=== PATIENT | female | born 1935 | race Caucasian/White ===

== ENCOUNTER 2023-03-25 19:12 | Observation (INO) | payer MEDICARE, OTHER ==
[2023-03-25 20:05] LABS: BASOPHILS ABSOLUTE AUTO 0.01 K/mm3 (0.01-0.08); BASOPHILS PERCENT AUTO 0.1 % (0.1-1.2); EOSINOPHILS ABSOLUTE AUTO 0.09 K/mm3 (0.04-0.36); HEMATOCRIT 34.1 % (34.1-44.9); IMMATURE GRAN ABSOLUTE AUTO 0.01 K/mm3 (0.00-0.10); IMMATURE GRAN PERCENT AUTO 0.1 % (<=1.0); LYMPHOCYTES ABSOLUTE AUTO 2.07 K/mm3 (1.18-3.74); MEAN CORPUSCULAR HEMOGLOBIN 31.9 pg (25.6-32.2); MEAN CORPUSCULAR HGB CONC 32.3 g/dl (32.2-35.5); MEAN CORPUSCULAR VOLUME 98.8 fl (79.4-94.8); MEAN PLATELET VOLUME 8.6 fl (9.4-12.3); MONOCYTES ABSOLUTE AUTO 0.74 K/mm3 (0.24-0.36); MONOCYTES PERCENT AUTO 8.2 % (4.7-12.5); NEUTROPHILS ABSOLUTE AUTO 6.09 K/mm3 (1.56-6.13); NEUTROPHILS PERCENT AUTO 67.6 % (34.0-71.1); PLATELET COUNT,PLT 390 K/mm3 (182-369); RED BLOOD CELL COUNT 3.45 M/mm3 (3.98-5.22); WHITE BLOOD CELL COUNT,WBC 9.01 K/mm3 (3.98-10.04)
[2023-03-25 20:28] LABS: A/G RATIO 0.5 (1-2); ALBUMIN 2.1 g/dl (3.4-5.0); ANION GAP 10.4 (5-15); BILIRUBIN TOTAL 0.2 mg/dL (0.2-1.0); CALCIUM 7.9 mg/dL (8.5-10.1); CREATININE 0.6 mg/dL (0.55-1.02); EST CRCL DRUG DOSING (CG) 49.19 mL/min; PROTEIN TOTAL,TP 6.6 g/dl (6.4-8.2)
[2023-03-25 20:50] LABS: POTASSIUM,K 2.4 mEq/L (3.5-5.1)
[2023-03-25] MEDS ORDERED: Potassium Chloride 20 MEQ Tab.ER PO ONE (20:53)
[2023-03-25] MEDS ORDERED: Potassium Chloride 10 MEQ in Premix Bag 1 BAG IV ONE (20:53)
[2023-03-25] MEDS: Potassium Chloride 10 MEQ in Premix Bag 1 BAG IV SCH (23:27)
[2023-03-25] MEDS ORDERED: Sodium Chloride 0.9% 250 ML IV SCH (23:30)
[2023-03-25] MEDS ORDERED: Sodium Chloride 0.9% 250 ML ONE (23:30)
[2023-03-26] MEDS: Potassium Chloride 10 MEQ in Premix Bag 1 BAG IV SCH (00:48)
[2023-03-26 05:22] LABS: BASOPHILS ABSOLUTE AUTO 0.01 K/mm3 (0.01-0.08); BASOPHILS PERCENT AUTO 0.1 % (0.1-1.2); EOSINOPHILS ABSOLUTE AUTO 0.14 K/mm3 (0.04-0.36); EOSINOPHILS PERCENT AUTO 1.5 (0.7-5.8); HEMATOCRIT 32.2 % (34.1-44.9); HEMOGLOBIN 10.1 gm/dl (11.2-15.7); IMMATURE GRAN ABSOLUTE AUTO 0.03 K/mm3 (0.00-0.10); IMMATURE GRAN PERCENT AUTO 0.3 % (<=1.0); LYMPHOCYTES ABSOLUTE AUTO 1.73 K/mm3 (1.18-3.74); LYMPHOCYTES PERCENT AUTO 18.4 % (19.3-51.7); MEAN CORPUSCULAR HEMOGLOBIN 31.4 pg (25.6-32.2); MEAN CORPUSCULAR HGB CONC 31.4 g/dl (32.2-35.5); MEAN PLATELET VOLUME 8.9 fl (9.4-12.3); MONOCYTES ABSOLUTE AUTO 0.69 K/mm3 (0.24-0.36); MONOCYTES PERCENT AUTO 7.3 % (4.7-12.5); NEUTROPHILS ABSOLUTE AUTO 6.81 K/mm3 (1.56-6.13); NEUTROPHILS PERCENT AUTO 72.4 % (34.0-71.1); PLATELET COUNT,PLT 357 K/mm3 (182-369); RED BLOOD CELL COUNT 3.22 M/mm3 (3.98-5.22); WHITE BLOOD CELL COUNT,WBC 9.41 K/mm3 (3.98-10.04)
[2023-03-26 05:38] LABS: ANION GAP 8.5 (5-15); CALCIUM 7.9 mg/dL (8.5-10.1); CREATININE 0.3 mg/dL (0.55-1.02); EST CRCL DRUG DOSING (CG) 94.9 mL/min; POTASSIUM,K 3.5 mEq/L (3.5-5.1)
== END 2023-03-26 13:40 | disposition home or self-care (01) ==
LOC: JD.ED 19:12 → JD.MS 21:56
PROVIDERS: ADMIT Internal Medicine; ATTEND Internal Medicine
DX: E87.6 Hypokalemia (principal); F03.90 Unspecified dementia, unspecified severity, without behavioral disturbance, psychotic disturbance, mood disturbance, and anxiety; Z79.899 Other long term (current) drug therapy; Z79.890 Hormone replacement therapy; Z87.891 Personal history of nicotine dependence
CPT/HCPCS: 36415; 80048; 80053; 85025; 96365; 96366; 99285; A9270; G0378; J3480; J7050

== ENCOUNTER 2024-10-31 11:01 | Inpatient (IN) | payer MEDICARE, OTHER ==
[2024-10-31 11:28] LABS: BICARBONATE,ARTERIAL 24.3 meq/L (22.0-26.0)
[2024-10-31 11:29] LABS: BASE EXCESS ARTERIAL -0.9 (-2-2.0); CARBOXYHEMOGLOBIN 1.6 %THgb (0.00-1.50); OXYHEMOGLOBIN 97.4; TOTAL HEMOGLOBIN 18.9 g/L (12.0-18.0)
[2024-10-31] MEDS: Lactated Ringers 1,000 ML IV ONE ×2 (11:30→14:53)
[2024-10-31] MEDS ORDERED: Sodium Chloride 0.9% 10 ML Syringe FLUSH PRN (11:32)
[2024-10-31 13:01] LABS: A/G RATIO 0.7 (1-2); ALANINE AMINOTRANSFERASE,ALT 37 U/L (14-59); ALBUMIN 2.7 g/dl (3.4-5.0); ALKALINE PHOSPHATASE 63 U/L (46-116); ANION GAP 15.9 (5-15); ASPARTATE AMNIOTRANSFERASE,AST 39 U/L (15-37); BUN/CREATININE RATIO 58.1 (14-18); CARBON DIOXIDE,CO2 28 mEq/L (21-32); CHLORIDE,CL 114 mEq/L (98-107); ESTIMATED GFR 31 mL/min (>60); GLUCOSE RANDOM 133 mg/dL (70-99); LIPASE 20 U/L (16-77); MAGNESIUM 2.4 mg/dL (1.8-2.4); POTASSIUM,K 3.9 mEq/L (3.5-5.1); PROTEIN TOTAL,TP 6.8 g/dl (6.4-8.2); TSH 2.807 uIU/mL (0.358-3.74)
[2024-10-31 13:12] LABS: ACETAMINOPHEN 0 ug/mL (10-30); BLOOD UREA NITROGEN,BUN 93 mg/dL (7-18); CALCIUM 10.7 mg/dL (8.5-10.1); CREATININE 1.6 mg/dL (0.55-1.02); SODIUM,NA 154 mEq/L (136-145); TROPONIN I HIGH SENSITIVITY 127 pg/mL (<=51)
[2024-10-31 13:13] LABS: LACTIC ACID 3.1 mmol/L (0.4-2.0)
[2024-10-31] MEDS: Piperacillin/Tazobactam 4.5 GM in Sodium Chloride 0.9% 100 ML IV ONE (13:45)
[2024-10-31] MEDS: Sodium Chloride 0.9% 1,000 ML IV ONE (14:00)
[2024-10-31 14:30] LABS: APPEARANCE,URINE CLEAR (Clear); BILIRUBIN,URINE 2+ (Negative); COLOR,URINE DARK YELLOW (Yellow); GLUCOSE,URINE NEGATIVE (Negative); KETONES,URINE 1+ (Negative); LEUKOCYTE ESTERASE,URINE NEGATIVE (Negative); NITRITE,URINE NEGATIVE (Negative); OCCULT BLOOD,URINE 3+ (Negative); PROTEIN,URINE 2+ (Negative)
[2024-10-31 14:36] LABS: BARBITURATE SCREEN,URINE NEGATIVE ({null, CUTOFF=200}); BENZODIAZEPINES SCREEN,URINE NEGATIVE ({null, CUTOFF=150}); BUPRENORPHINE SCREEN,URINE NEGATIVE ({null, CUTOFF=10}); METHADONE SCREEN, URINE NEGATIVE ({null, CUTOFF=200}); METHAMPHETAMINES SCREEN, URINE NEGATIVE ({null, CUTOFF=500}); OXYCODONE SCREEN,URINE NEGATIVE ({null, CUT0FF=100}); THC SCREEN,URINE 20 NG/ML PRESUMPTIVE POSITIVE ({null, CUTOFF=50})
[2024-10-31 14:49] LABS: AMPHETAMINES SCREEN, URINE NEGATIVE ({null, CUTOFF=500})
[2024-10-31] MEDS: Aspirin 300 MG Supp RECTAL ONE (14:50)
[2024-10-31] MEDS: VANCOmycin 0.75 GM in Sodium Chloride 0.9% 250 ML IV ONE (14:50)
[2024-10-31 15:03] LABS: BACTERIA,URINE FEW /hpf (FEW); EPITHELIAL CELLS,URINE 0-5 /hpf (0-5); MUCUS,URINE FEW /hpf (FEW); RBC,URINE 20-30 /hpf (0-5); WBC,URINE 0-5 /hpf (0-5)
[2024-10-31 15:04] LABS: HYALINE CASTS,URINE 0-5 /lpf (0-5)
[2024-10-31 15:05] LABS: COARSE GRANULAR CASTS,URINE 0-5 /hpf (0-5)
[2024-10-31] MEDS: Sodium Chloride 0.9% 10 ML Syringe FLUSH ONE (15:56)
[2024-10-31] MEDS: Iopamidol 755 Mg/ML 100 ML Bottle IVPUSH ONE (15:56)
[2024-10-31] MEDS: Lactated Ringers 1,000 ML IV SCH ×2 (16:30→16:37)
[2024-10-31] MEDS ORDERED: Acetaminophen 325 MG Tab PO PRN (16:54)
[2024-10-31] MEDS ORDERED: Naloxone 0.4 MG/ML SDV IVPUSH PRN (16:54)
[2024-10-31] MEDS ORDERED: oxyCODONE 5 MG Tab PO PRN (16:54)
[2024-10-31] MEDS ORDERED: Sennosides/Docusate Sodium 50-8.6 MG Tab PO PRN (16:54)
[2024-10-31] MEDS ORDERED: Morphine 2 MG/ML SYRINGE IVPUSH PRN (16:54)
[2024-10-31] MEDS ORDERED: 50% Dextrose in Water 50 ML Syringe IVPUSH PRN (17:06)
[2024-10-31 17:59] LABS: BASOPHILS PERCENT AUTO 0.1 % (0.0-1.0); HEMATOCRIT 45.6 % (37.0-47.0); HEMOGLOBIN 15.1 gm/dl (12.0-16.0); IMMATURE GRAN ABSOLUTE AUTO 0.04 K/mm3 (0.00-0.05); IMMATURE GRAN PERCENT AUTO 0.4 % (0.0-0.4); LYMPHOCYTES ABSOLUTE AUTO 0.7 K/mm3 (1.0-4.8); LYMPHOCYTES PERCENT AUTO 6.8 % (24.0-44.0); MEAN CORPUSCULAR HEMOGLOBIN 32.3 pg (28.0-32.0); MEAN CORPUSCULAR HGB CONC 33.1 g/dl (32.0-36.0); MEAN CORPUSCULAR VOLUME 97.6 fl (83.0-99.0); MEAN PLATELET VOLUME 11.2 fl (9.4-12.3); MONOCYTES PERCENT AUTO 9.5 % (0.0-8.0); NEUTROPHILS ABSOLUTE AUTO 9.1 K/mm3 (1.8-7.7); NEUTROPHILS PERCENT AUTO 83.2 % (41.0-71.0); PLATELET COUNT,PLT 226 K/mm3 (150-400); RED BLOOD CELL COUNT 4.67 M/mm3 (4.10-5.30); WHITE BLOOD CELL COUNT,WBC 10.96 K/mm3 (3.9-11.3)
[2024-10-31] MEDS: Cefepime 2 GM Vial IVPUSH SCH (18:21)
[2024-10-31 18:22] LABS: ANION GAP 13.8 (5-15); BLOOD UREA NITROGEN,BUN 91 mg/dL (7-18); BUN/CREATININE RATIO 56.9 (14-18); CALCIUM 9.8 mg/dL (8.5-10.1); CARBON DIOXIDE,CO2 26 mEq/L (21-32); CHLORIDE,CL 118 mEq/L (98-107); CREATININE 1.6 mg/dL (0.55-1.02); ESTIMATED GFR 31 mL/min (>60); GLUCOSE RANDOM 110 mg/dL (70-99); PHOSPHORUS 4.8 mg/dL (2.6-4.7); POTASSIUM,K 3.8 mEq/L (3.5-5.1); SODIUM,NA 154 mEq/L (136-145)
[2024-10-31] MEDS: Heparin Sodium 5,000 Units/ML Vial IVPUSH ONE (18:23)
[2024-10-31 18:26] LABS: TROPONIN I HIGH SENSITIVITY 189 pg/mL (<=51)
[2024-10-31 18:40] LABS: CREATININE,URINE RAND 118.2 mg/dL (30.0-125.0)
[2024-10-31] MEDS ORDERED: Dextrose 5% in Water 1,000 ML IV SCH (18:45)
[2024-10-31] MEDS: Dextrose 5% in Water 1,000 ML IV SCH (19:33)
[2024-10-31] MEDS: Famotidine 20 MG/2 ML SDV IVPUSH SCH (22:54)
[2024-10-31] MEDS: Insulin Lispro 100 Unit/ML 3 ML KwikPen SUBCUT SCH (22:55)
[2024-11-01] MEDS: Aspirin 81 MG Tab.Chew PO ONE (00:51)
[2024-11-01 05:31] LABS: BASOPHILS PERCENT AUTO 0.1 % (0.0-1.0); EOSINOPHILS PERCENT AUTO 0.4 % (0.0-6.0); HEMATOCRIT 42.1 % (37.0-47.0); HEMOGLOBIN 14.1 gm/dl (12.0-16.0); IMMATURE GRAN ABSOLUTE AUTO 0.07 K/mm3 (0.00-0.05); IMMATURE GRAN PERCENT AUTO 0.9 % (0.0-0.4); LYMPHOCYTES ABSOLUTE AUTO 0.9 K/mm3 (1.0-4.8); LYMPHOCYTES PERCENT AUTO 10.6 % (24.0-44.0); MEAN CORPUSCULAR HEMOGLOBIN 32.4 pg (28.0-32.0); MEAN CORPUSCULAR HGB CONC 33.5 g/dl (32.0-36.0); MEAN CORPUSCULAR VOLUME 96.8 fl (83.0-99.0); MEAN PLATELET VOLUME 11.3 fl (9.4-12.3); MONOCYTES ABSOLUTE AUTO 0.7 K/mm3 (0.0-0.8); NEUTROPHILS ABSOLUTE AUTO 6.3 K/mm3 (1.8-7.7); PLATELET COUNT,PLT 224 K/mm3 (150-400); RED BLOOD CELL COUNT 4.35 M/mm3 (4.10-5.30); WHITE BLOOD CELL COUNT,WBC 8.01 K/mm3 (3.9-11.3)
[2024-11-01] MEDS: Heparin Sodium/D5W 250 ML IV SCH (05:52)
[2024-11-01 06:12] LABS: A/G RATIO 0.6 (1-2); ALANINE AMINOTRANSFERASE,ALT 30 U/L (14-59); ALBUMIN 2.1 g/dl (3.4-5.0); ALKALINE PHOSPHATASE 54 U/L (46-116); ANION GAP 13.5 (5-15); ASPARTATE AMNIOTRANSFERASE,AST 35 U/L (15-37); BILIRUBIN TOTAL 0.9 mg/dL (0.2-1.0); BLOOD UREA NITROGEN,BUN 80 mg/dL (7-18); BUN/CREATININE RATIO 57.1 (14-18); C-REACTIVE PROTEIN 12.74 mg/dL (<0.30); CALCIUM 9.2 mg/dL (8.5-10.1); CARBON DIOXIDE,CO2 26 mEq/L (21-32); CHLORIDE,CL 117 mEq/L (98-107); CREATINE KINASE,CK 246 U/L (26-192); CREATININE 1.4 mg/dL (0.55-1.02); ESTIMATED GFR 36 mL/min (>60); GLUCOSE RANDOM 142 mg/dL (70-99); MAGNESIUM 2.2 mg/dL (1.8-2.4); PHOSPHORUS 3.2 mg/dL (2.6-4.7); POTASSIUM,K 3.5 mEq/L (3.5-5.1); PROTEIN TOTAL,TP 5.6 g/dl (6.4-8.2); SODIUM,NA 153 mEq/L (136-145)
[2024-11-01] MEDS ORDERED: Dextrose 5% in Water 1,000 ML IV SCH (10:00)
[2024-11-01] MEDS: cefTRIAXone 2 GM Vial IVPUSH SCH (12:30)
[2024-11-01] MEDS ORDERED: Acetaminophen 650 MG Supp RECTAL PRN (12:32)
[2024-11-01] MEDS: D5 1/2 NS w/ 20 mEq/L KCl 1,000 ML IV SCH (12:42)
[2024-11-01 14:10] LABS: FOLIC ACID 5.8 ng/mL (8.6-58.9)
[2024-11-01] MEDS: Folic Acid 50 MG/10 ML MDV IV SCH (15:32)
[2024-11-01 18:44] LABS: ANION GAP 11.3 (5-15); CALCIUM 8.9 mg/dL (8.5-10.1); EST CRCL DRUG DOSING (CG) 24.66 mL/min; POTASSIUM,K 3.3 mEq/L (3.5-5.1)
[2024-11-01] MEDS: Dextrose 5% in Water 1,000 ML IV SCH (20:38)
[2024-11-01] MEDS: Potassium Chloride 10 MEQ in Premix Bag 1 BAG IV SCH (20:39)
[2024-11-01] MEDS: Doxycycline 100 MG in Sodium Chloride 0.9% 100 ML IV SCH (20:41)
[2024-11-01] MEDS ORDERED: VANCOmycin 500 MG/100 ML 500 MG in Premix Bag 1 BAG IV SCH (21:00)
[2024-11-02 04:40] LABS: BASOPHILS PERCENT AUTO 0.1 % (0.0-1.0); EOSINOPHILS ABSOLUTE AUTO 0.1 K/mm3 (0.0-0.4); EOSINOPHILS PERCENT AUTO 1.3 % (0.0-6.0); HEMATOCRIT 37.9 % (37.0-47.0); HEMOGLOBIN 12.3 gm/dl (12.0-16.0); IMMATURE GRAN ABSOLUTE AUTO 0.07 K/mm3 (0.00-0.05); IMMATURE GRAN PERCENT AUTO 0.8 % (0.0-0.4); LYMPHOCYTES ABSOLUTE AUTO 1.3 K/mm3 (1.0-4.8); LYMPHOCYTES PERCENT AUTO 14.7 % (24.0-44.0); MEAN CORPUSCULAR HEMOGLOBIN 32.5 pg (28.0-32.0); MEAN CORPUSCULAR HGB CONC 32.5 g/dl (32.0-36.0); MEAN PLATELET VOLUME 11.6 fl (9.4-12.3); MONOCYTES ABSOLUTE AUTO 0.7 K/mm3 (0.0-0.8); MONOCYTES PERCENT AUTO 8.1 % (0.0-8.0); NEUTROPHILS ABSOLUTE AUTO 6.4 K/mm3 (1.8-7.7); PLATELET COUNT,PLT 155 K/mm3 (150-400); RED BLOOD CELL COUNT 3.79 M/mm3 (4.10-5.30); WHITE BLOOD CELL COUNT,WBC 8.51 K/mm3 (3.9-11.3)
[2024-11-02 05:17] LABS: A/G RATIO 0.5 (1-2); ALBUMIN 1.9 g/dl (3.4-5.0); BILIRUBIN TOTAL 0.5 mg/dL (0.2-1.0); BUN/CREATININE RATIO 52.5 (14-18); C-REACTIVE PROTEIN 7.58 mg/dL (<0.30); CALCIUM 8.8 mg/dL (8.5-10.1); CREATININE 0.8 mg/dL (0.55-1.02); EST CRCL DRUG DOSING (CG) 30.83 mL/min; MAGNESIUM 1.8 mg/dL (1.8-2.4); PROTEIN TOTAL,TP 5.4 g/dl (6.4-8.2)
[2024-11-02] MEDS: Magnesium Sulfat/D5W 1GM/100ML 1 GM in Premix Bag 1 BAG IV ONE (08:08)
[2024-11-02] MEDS: Enoxaparin 30 MG/0.3 ML Syringe SUBCUT SCH (08:09)
[2024-11-02 18:49] LABS: ANION GAP 11.9 (5-15); BUN/CREATININE RATIO 37.1 (14-18); CREATININE 0.7 mg/dL (0.55-1.02); EST CRCL DRUG DOSING (CG) 39.79 mL/min; POTASSIUM,K 3.9 mEq/L (3.5-5.1)
[2024-11-02] MEDS: Metoprolol Succinate 25 MG Tab.ER PO SCH (22:30)
[2024-11-02] MEDS: Ondansetron 4 MG/2 ML SDV IV PRN (23:15)
[2024-11-03 07:34] LABS: BASOPHILS PERCENT AUTO 0.1 % (0.0-1.0); EOSINOPHILS ABSOLUTE AUTO 0.2 K/mm3 (0.0-0.4); EOSINOPHILS PERCENT AUTO 2.3 % (0.0-6.0); HEMATOCRIT 40.7 % (37.0-47.0); HEMOGLOBIN 12.9 gm/dl (12.0-16.0); IMMATURE GRAN ABSOLUTE AUTO 0.09 K/mm3 (0.00-0.05); IMMATURE GRAN PERCENT AUTO 1.1 % (0.0-0.4); LYMPHOCYTES ABSOLUTE AUTO 1.2 K/mm3 (1.0-4.8); LYMPHOCYTES PERCENT AUTO 13.9 % (24.0-44.0); MEAN CORPUSCULAR HEMOGLOBIN 32.3 pg (28.0-32.0); MEAN CORPUSCULAR HGB CONC 31.7 g/dl (32.0-36.0); MEAN PLATELET VOLUME 11.2 fl (9.4-12.3); MONOCYTES ABSOLUTE AUTO 0.7 K/mm3 (0.0-0.8); NEUTROPHILS ABSOLUTE AUTO 6.2 K/mm3 (1.8-7.7); NEUTROPHILS PERCENT AUTO 74.6 % (41.0-71.0); PLATELET COUNT,PLT 162 K/mm3 (150-400); RED BLOOD CELL COUNT 3.99 M/mm3 (4.10-5.30)
[2024-11-03 08:08] LABS: A/G RATIO 0.5 (1-2); ANION GAP 8.8 (5-15); BILIRUBIN TOTAL 0.5 mg/dL (0.2-1.0); BUN/CREATININE RATIO 28.6 (14-18); C-REACTIVE PROTEIN 5.16 mg/dL (<0.30); CALCIUM 9.1 mg/dL (8.5-10.1); CREATININE 0.7 mg/dL (0.55-1.02); EST CRCL DRUG DOSING (CG) 39.4 mL/min; MAGNESIUM 1.8 mg/dL (1.8-2.4); POTASSIUM,K 3.8 mEq/L (3.5-5.1); PROTEIN TOTAL,TP 5.7 g/dl (6.4-8.2)
[2024-11-03] MEDS: Potassium Chloride 20 MEQ Tab.ER PO ONE (09:02)
[2024-11-03] MEDS: Magnesium Sulfat/D5W 1GM/100ML 1 GM in Premix Bag 1 BAG IV ONE (09:04)
[2024-11-03] MEDS ORDERED: Loperamide 2 MG Cap PO PRN (09:14)
[2024-11-03] MEDS: Loperamide 2 MG Cap PO ONE (09:23)
[2024-11-03] MEDS: Loperamide 2 MG Cap PO PRN (13:47)
[2024-11-03] MEDS: Cefdinir 300 MG Cap PO SCH (13:47)
[2024-11-03] MEDS: Doxycycline Monohydrate 100 MG Cap PO SCH (21:40)
[2024-11-03] MEDS: Famotidine 20 MG Tab PO SCH (21:40)
[2024-11-04 06:53] LABS: BASOPHILS PERCENT AUTO 0.2 % (0.0-1.0); EOSINOPHILS ABSOLUTE AUTO 0.2 K/mm3 (0.0-0.4); EOSINOPHILS PERCENT AUTO 2.8 % (0.0-6.0); HEMATOCRIT 42.2 % (37.0-47.0); HEMOGLOBIN 13.5 gm/dl (12.0-16.0); IMMATURE GRAN ABSOLUTE AUTO 0.12 K/mm3 (0.00-0.05); IMMATURE GRAN PERCENT AUTO 1.5 % (0.0-0.4); LYMPHOCYTES ABSOLUTE AUTO 1.3 K/mm3 (1.0-4.8); LYMPHOCYTES PERCENT AUTO 15.5 % (24.0-44.0); MEAN CORPUSCULAR HEMOGLOBIN 31.8 pg (28.0-32.0); MEAN CORPUSCULAR VOLUME 99.5 fl (83.0-99.0); MEAN PLATELET VOLUME 11.3 fl (9.4-12.3); MONOCYTES ABSOLUTE AUTO 0.7 K/mm3 (0.0-0.8); NEUTROPHILS ABSOLUTE AUTO 5.8 K/mm3 (1.8-7.7); PLATELET COUNT,PLT 163 K/mm3 (150-400); RED BLOOD CELL COUNT 4.24 M/mm3 (4.10-5.30); WHITE BLOOD CELL COUNT,WBC 8.15 K/mm3 (3.9-11.3)
[2024-11-04 07:19] LABS: A/G RATIO 0.6 (1-2); ALBUMIN 2.2 g/dl (3.4-5.0); ANION GAP 9.6 (5-15); BILIRUBIN TOTAL 0.6 mg/dL (0.2-1.0); C-REACTIVE PROTEIN 4.34 mg/dL (<0.30); CALCIUM 9.2 mg/dL (8.5-10.1); CREATININE 0.6 mg/dL (0.55-1.02); EST CRCL DRUG DOSING (CG) 46.88 mL/min; MAGNESIUM 1.8 mg/dL (1.8-2.4); PHOSPHORUS 1.6 mg/dL (2.6-4.7); POTASSIUM,K 3.6 mEq/L (3.5-5.1)
[2024-11-04] MEDS ORDERED: Labetalol 100 MG/20 ML MDV IVPUSH PRN (07:42)
[2024-11-04] MEDS ORDERED: hydrALAZINE 20 MG/ML SDV IVPUSH PRN (07:42)
[2024-11-04] MEDS: Potassium Chloride 10 MEQ in Premix Bag 1 BAG IV SCH (08:36)
[2024-11-04] MEDS: Sodium Chloride 0.9% 250 ML IV SCH (08:36)
[2024-11-04] MEDS: Folic Acid 1 MG Tab PO SCH (08:36)
[2024-11-04] MEDS: Magnesium Sulf/Wat 2 GM/50 mL 2 GM in Premix Bag 1 BAG IV ONE (08:36)
[2024-11-04] MEDS: Tamsulosin 0.4 MG Cap.ER PO SCH (13:03)
[2024-11-04] MEDS: Potassium Chloride 10 MEQ in Premix Bag 1 BAG IV ONE (16:17)
[2024-11-04] MEDS: Potassium Phosphates 30 MMOLE in Sodium Chloride 0.9% 500 ML IV ONE ×2 (16:18→17:35)
[2024-11-04] MEDS: Melatonin 3 MG Tab PO PRN (21:03)
[2024-11-05 04:47] LABS: VITAMIN D 1,25 49.4 pg/mL (19.9-79.3)
[2024-11-05 06:14] LABS: BASOPHILS PERCENT AUTO 0.1 % (0.0-1.0); EOSINOPHILS ABSOLUTE AUTO 0.2 K/mm3 (0.0-0.4); EOSINOPHILS PERCENT AUTO 1.8 % (0.0-6.0); HEMATOCRIT 37.1 % (37.0-47.0); HEMOGLOBIN 12.1 gm/dl (12.0-16.0); LYMPHOCYTES ABSOLUTE AUTO 1.2 K/mm3 (1.0-4.8); LYMPHOCYTES PERCENT AUTO 11.7 % (24.0-44.0); MEAN CORPUSCULAR HEMOGLOBIN 32.1 pg (28.0-32.0); MEAN CORPUSCULAR HGB CONC 32.6 g/dl (32.0-36.0); MEAN CORPUSCULAR VOLUME 98.4 fl (83.0-99.0); MEAN PLATELET VOLUME 11.2 fl (9.4-12.3); MONOCYTES ABSOLUTE AUTO 0.9 K/mm3 (0.0-0.8); MONOCYTES PERCENT AUTO 9.4 % (0.0-8.0); NEUTROPHILS ABSOLUTE AUTO 7.6 K/mm3 (1.8-7.7); PLATELET COUNT,PLT 158 K/mm3 (150-400); RED BLOOD CELL COUNT 3.77 M/mm3 (4.10-5.30); WHITE BLOOD CELL COUNT,WBC 10.05 K/mm3 (3.9-11.3)
[2024-11-05 06:34] LABS: A/G RATIO 0.5 (1-2); ALBUMIN 1.8 g/dl (3.4-5.0); ANION GAP 11.6 (5-15); BILIRUBIN TOTAL 0.3 mg/dL (0.2-1.0); C-REACTIVE PROTEIN 3.58 mg/dL (<0.30); CALCIUM 8.3 mg/dL (8.5-10.1); CREATININE 0.5 mg/dL (0.55-1.02); EST CRCL DRUG DOSING (CG) 56.26 mL/min; MAGNESIUM 1.6 mg/dL (1.8-2.4); POTASSIUM,K 4.6 mEq/L (3.5-5.1); PROTEIN TOTAL,TP 5.2 g/dl (6.4-8.2)
[2024-11-05] MEDS: Losartan 25 MG Tab PO SCH (08:10)
[2024-11-05] MEDS: Magnesium Sulf/Wat 4 GM/50 mL 4 GM in Premix Bag 1 BAG IV ONE (08:10)
[2024-11-05] MEDS: Phosphorus #1 250 MG Tab PO ONE (11:55)
[2024-11-06 06:13] LABS: ANION GAP 7.5 (5-15); CALCIUM 8.5 mg/dL (8.5-10.1); CREATININE 0.5 mg/dL (0.55-1.02); EST CRCL DRUG DOSING (CG) 56.91 mL/min; PHOSPHORUS 2.7 mg/dL (2.6-4.7); POTASSIUM,K 4.5 mEq/L (3.5-5.1)
[2024-11-06] MEDS: Albuterol/Ipratropium 3.0-0.5 MG/3 ML Neb Soln NEB PRN (10:03)
[2024-11-08] MEDS: Acetaminophen 325 MG Tab PO PRN (03:57)
[2024-11-08] MEDS: Benzocaine 20% Oral Spray 59.2 ML Canister MUCMEM PRN (04:33)
[2024-11-08 09:38] LABS: BASOPHILS PERCENT AUTO 0.2 % (0.0-1.0); EOSINOPHILS PERCENT AUTO 0.2 % (0.0-6.0); HEMATOCRIT 39.8 % (37.0-47.0); HEMOGLOBIN 13.5 gm/dl (12.0-16.0); IMMATURE GRAN ABSOLUTE AUTO 0.09 K/mm3 (0.00-0.05); IMMATURE GRAN PERCENT AUTO 0.5 % (0.0-0.4); LYMPHOCYTES ABSOLUTE AUTO 1.1 K/mm3 (1.0-4.8); LYMPHOCYTES PERCENT AUTO 6.3 % (24.0-44.0); MEAN CORPUSCULAR HEMOGLOBIN 32.7 pg (28.0-32.0); MEAN CORPUSCULAR HGB CONC 33.9 g/dl (32.0-36.0); MEAN CORPUSCULAR VOLUME 96.4 fl (83.0-99.0); MEAN PLATELET VOLUME 11.1 fl (9.4-12.3); MONOCYTES ABSOLUTE AUTO 1.2 K/mm3 (0.0-0.8); MONOCYTES PERCENT AUTO 7.4 % (0.0-8.0); NEUTROPHILS ABSOLUTE AUTO 14.1 K/mm3 (1.8-7.7); NEUTROPHILS PERCENT AUTO 85.4 % (41.0-71.0); RED BLOOD CELL COUNT 4.13 M/mm3 (4.10-5.30); WHITE BLOOD CELL COUNT,WBC 16.55 K/mm3 (3.9-11.3)
[2024-11-08 09:41] LABS: PLATELET COUNT,PLT 234 K/mm3 (150-400)
[2024-11-08 10:20] LABS: ANION GAP 9.6 (5-15); BUN/CREATININE RATIO 26.7 (14-18); C-REACTIVE PROTEIN 1.53 mg/dL (<0.30); CALCIUM 9.1 mg/dL (8.5-10.1); CREATININE 0.6 mg/dL (0.55-1.02); EST CRCL DRUG DOSING (CG) 45.66 mL/min; MAGNESIUM 1.5 mg/dL (1.8-2.4); POTASSIUM,K 4.6 mEq/L (3.5-5.1)
[2024-11-08] MEDS: Piperacillin/Tazobactam 4.5 GM in Sodium Chloride 0.9% 100 ML IV ONE (10:29)
[2024-11-08] MEDS: Magnesium Sulf/Wat 2 GM/50 mL 2 GM in Premix Bag 1 BAG IV ONE (11:08)
[2024-11-08] MEDS: Piperacillin/Tazobactam 4.5 GM in Sodium Chloride 0.9% 100 ML IV SCH (13:56)
[2024-11-09 04:54] LABS: BASOPHILS PERCENT AUTO 0.1 % (0.0-1.0); EOSINOPHILS ABSOLUTE AUTO 0.2 K/mm3 (0.0-0.4); HEMATOCRIT 35.4 % (37.0-47.0); HEMOGLOBIN 11.8 gm/dl (12.0-16.0); IMMATURE GRAN ABSOLUTE AUTO 0.07 K/mm3 (0.00-0.05); IMMATURE GRAN PERCENT AUTO 0.5 % (0.0-0.4); LYMPHOCYTES ABSOLUTE AUTO 1.5 K/mm3 (1.0-4.8); LYMPHOCYTES PERCENT AUTO 9.9 % (24.0-44.0); MEAN CORPUSCULAR HEMOGLOBIN 32.4 pg (28.0-32.0); MEAN CORPUSCULAR HGB CONC 33.3 g/dl (32.0-36.0); MEAN CORPUSCULAR VOLUME 97.3 fl (83.0-99.0); MEAN PLATELET VOLUME 10.9 fl (9.4-12.3); MONOCYTES ABSOLUTE AUTO 1.2 K/mm3 (0.0-0.8); NEUTROPHILS ABSOLUTE AUTO 11.9 K/mm3 (1.8-7.7); NEUTROPHILS PERCENT AUTO 80.5 % (41.0-71.0); PLATELET COUNT,PLT 218 K/mm3 (150-400); RED BLOOD CELL COUNT 3.64 M/mm3 (4.10-5.30); WHITE BLOOD CELL COUNT,WBC 14.79 K/mm3 (3.9-11.3)
[2024-11-09 05:16] LABS: A/G RATIO 0.5 (1-2); ALBUMIN 1.9 g/dl (3.4-5.0); BILIRUBIN TOTAL 0.4 mg/dL (0.2-1.0); BUN/CREATININE RATIO 18.6 (14-18); C-REACTIVE PROTEIN 4.65 mg/dL (<0.30); CALCIUM 8.9 mg/dL (8.5-10.1); CREATININE 0.7 mg/dL (0.55-1.02); EST CRCL DRUG DOSING (CG) 39.13 mL/min; PROTEIN TOTAL,TP 5.4 g/dl (6.4-8.2)
[2024-11-09 05:35] LABS: ANION GAP 11.3 (5-15); POTASSIUM,K 4.3 mEq/L (3.5-5.1)
[2024-11-10 04:30] LABS: BASOPHILS PERCENT AUTO 0.3 % (0.0-1.0); EOSINOPHILS ABSOLUTE AUTO 0.2 K/mm3 (0.0-0.4); EOSINOPHILS PERCENT AUTO 1.6 % (0.0-6.0); HEMATOCRIT 32.7 % (37.0-47.0); HEMOGLOBIN 10.7 gm/dl (12.0-16.0); IMMATURE GRAN ABSOLUTE AUTO 0.05 K/mm3 (0.00-0.05); IMMATURE GRAN PERCENT AUTO 0.5 % (0.0-0.4); LYMPHOCYTES ABSOLUTE AUTO 1.6 K/mm3 (1.0-4.8); LYMPHOCYTES PERCENT AUTO 14.7 % (24.0-44.0); MEAN CORPUSCULAR HEMOGLOBIN 32.5 pg (28.0-32.0); MEAN CORPUSCULAR HGB CONC 32.7 g/dl (32.0-36.0); MEAN CORPUSCULAR VOLUME 99.4 fl (83.0-99.0); MEAN PLATELET VOLUME 10.6 fl (9.4-12.3); MONOCYTES ABSOLUTE AUTO 0.9 K/mm3 (0.0-0.8); MONOCYTES PERCENT AUTO 8.3 % (0.0-8.0); NEUTROPHILS ABSOLUTE AUTO 8.2 K/mm3 (1.8-7.7); NEUTROPHILS PERCENT AUTO 74.6 % (41.0-71.0); PLATELET COUNT,PLT 242 K/mm3 (150-400); RED BLOOD CELL COUNT 3.29 M/mm3 (4.10-5.30); WHITE BLOOD CELL COUNT,WBC 11.02 K/mm3 (3.9-11.3)
[2024-11-10 04:56] LABS: A/G RATIO 0.5 (1-2); ALBUMIN 1.8 g/dl (3.4-5.0); ANION GAP 8.2 (5-15); BILIRUBIN TOTAL 0.4 mg/dL (0.2-1.0); BUN/CREATININE RATIO 21.4 (14-18); C-REACTIVE PROTEIN 4.57 mg/dL (<0.30); CREATININE 0.7 mg/dL (0.55-1.02); EST CRCL DRUG DOSING (CG) 39.13 mL/min; MAGNESIUM 1.7 mg/dL (1.8-2.4); POTASSIUM,K 4.2 mEq/L (3.5-5.1); PROTEIN TOTAL,TP 5.2 g/dl (6.4-8.2)
[2024-11-10 05:20] LABS: CALCIUM 8.3 mg/dL (8.5-10.1)
[2024-11-10] MEDS: Magnesium Oxide 400 MG Tab PO ONE (08:01)
== END 2024-11-10 12:30 | DRG 871 ==
LOC: JD.ED 11:01 → JD.ICU 15:48 → JD.MS 11-04 18:00
PROVIDERS: ADMIT Student in an Organized Health Care Education/Training Program; ATTEND Family Medicine
PROC: 3E03329 Introduction of Other Anti-infective into Peripheral Vein, Percutaneous Approach (ICD-10-PCS; principal; 2024-10-31)
PROC: 4A033R1 Measurement of Arterial Saturation, Peripheral, Percutaneous Approach (ICD-10-PCS; principal; 2024-10-31)
PROC: 0T2BX0Z Change Drainage Device in Bladder, External Approach (ICD-10-PCS; 2024-11-04)
DX: T68.XXXA Hypothermia, initial encounter (principal); A41.9 Sepsis, unspecified organism; G92.8 Other toxic encephalopathy; L89.213 Pressure ulcer of right hip, stage 3; R65.21 Severe sepsis with septic shock; J69.0 Pneumonitis due to inhalation of food and vomit; J96.01 Acute respiratory failure with hypoxia; I21.A1 Myocardial infarction type 2; N17.9 Acute kidney failure, unspecified; E87.0 Hyperosmolality and hypernatremia; I50.32 Chronic diastolic (congestive) heart failure; E46 Unspecified protein-calorie malnutrition; E87.20 Acidosis, unspecified; L03.115 Cellulitis of right lower limb; Z68.20 Body mass index [BMI] 20.0-20.9, adult; Z66 Do not resuscitate; F03.90 Unspecified dementia, unspecified severity, without behavioral disturbance, psychotic disturbance, mood disturbance, and anxiety; T79.6XXA Traumatic ischemia of muscle, initial encounter; E87.8 Other disorders of electrolyte and fluid balance, not elsewhere classified; I11.0 Hypertensive heart disease with heart failure; E83.39 Other disorders of phosphorus metabolism; I35.0 Nonrheumatic aortic (valve) stenosis; R62.7 Adult failure to thrive; K57.30 Diverticulosis of large intestine without perforation or abscess without bleeding; E86.0 Dehydration; E53.8 Deficiency of other specified B group vitamins; Q24.8 Other specified congenital malformations of heart; R33.9 Retention of urine, unspecified; E03.9 Hypothyroidism, unspecified; Z96.649 Presence of unspecified artificial hip joint; L89.019 Pressure ulcer of right elbow, unspecified stage; L89.899 Pressure ulcer of other site, unspecified stage; L89.152 Pressure ulcer of sacral region, stage 2; L89.111 Pressure ulcer of right upper back, stage 1; Z79.899 Other long term (current) drug therapy; Z90.49 Acquired absence of other specified parts of digestive tract; Z98.890 Other specified postprocedural states; X58.XXXA Exposure to other specified factors, initial encounter
CPT/HCPCS: 36415; 36600; 51702; 70450; 71045; 71260; 74177; 80053; 80143; 80179; 80306; 80307; 81001; 82140; 82550; 82570; 82803 ×2; 82947; 83605 ×2; 83690; 83735; 83935; 84300; 84443; 84484; 84540; 86900; 86901; 87040 ×2; 87428; 93005; 96361; 96365; 96367; 99285; A9270; J2543; J7030; J7120 ×2; 80048; 80202; 82306; 82607; 82652; 82746; 83930; 84100; 85025; 85730; 86140; 87641; 92610-GN; 93010; 93306; 94640; 94667; 94668; 94761; 94762; 97110-GP; 97162-GP; 97530-GP; 97597-GP; 99223; 99232; 99233; 99239; 99291; J0692; J0696; J1644; J1650; J1815; J2405; J3475; J3480; J3490; J7040; J7060; J7620-GY; Q9967